=== PATIENT | female | born 1985 | race Two or more races ===

== ENCOUNTER 2021-09-15 11:52 | Outpatient (CLI) | payer OTHER | END 2021-09-15 12:38 | disposition home or self-care (01) | LOC: SONOGRAMA 11:52 | PROVIDERS: ATTEND Pathology Anatomic Pathology & Clinical Pathology | DX: E04.1 Nontoxic single thyroid nodule (principal) ==

== ENCOUNTER 2021-12-02 22:34 | Emergency (ER) | payer OTHER ==
[~2021-12-02] VITALS: Ht 157.5 cm; Wt 82.1 kg
[2021-12-02] MEDS ORDERED: PRENA1 CHEW TA1.4 MG (23:15)
[2021-12-02] MEDS ORDERED: PEPCID AC10 MG (23:15)
== END 2021-12-03 07:32 | disposition home or self-care (01) ==
LOC: ER 22:34
DX: O26.852 Spotting complicating pregnancy, second trimester (principal); O26.892 Other specified pregnancy related conditions, second trimester; Z3A.15 15 weeks gestation of pregnancy

== ENCOUNTER 2022-05-05 11:06 | Outpatient (CLI) | payer OTHER ==
[~2022-05-05 11:06] MED LIST: PEPCID AC10 MG; PRENA1 CHEW TA1.4 MG
== END 2022-05-05 11:52 | disposition home or self-care (01) ==
LOC: NST 11:06
PROVIDERS: ATTEND Obstetrics & Gynecology Maternal & Fetal Medicine
DX: Z34.83 Encounter for supervision of other normal pregnancy, third trimester (principal)

== ENCOUNTER 2022-05-18 13:45 | Inpatient (IN) | payer OTHER ==
[~2022-05-18] VITALS: Ht 157.5 cm; Wt 90.7 kg
== END 2022-05-24 12:58 | disposition home or self-care, planned readmission (81) | DRG 807 ==
LOC: SURG-SUITE 05-22 13:06 → LDR 05-22 13:06 → SURG-SUITE 05-22 17:27 → LDR 05-29 13:45
PROVIDERS: ADMIT Obstetrics & Gynecology Maternal & Fetal Medicine; ATTEND Obstetrics & Gynecology Maternal & Fetal Medicine
PROC: 10E0XZZ Delivery of Products of Conception, External Approach (ICD-10-PCS; principal; 2022-05-22)
PROC: 4A1HXCZ Monitoring of Products of Conception, Cardiac Rate, External Approach (ICD-10-PCS; 2022-05-22)
DX: O80 Encounter for full-term uncomplicated delivery (principal); Z37.0 Single live birth; Z3A.39 39 weeks gestation of pregnancy; Z20.822 Contact with and (suspected) exposure to COVID-19

== ENCOUNTER 2023-10-12 13:30 | Inpatient (IN) | payer OTHER ==
[~2023-10-12] VITALS: Ht 157.5 cm; Wt 91.6 kg
[2023-10-24 07:32] LABS: URINE APPEARANCE Clear; URINE BILIRRUBIN Negative (NEGATIVE); URINE BLOOD Small; URINE COLOR Yellow; URINE GLUCOSE Negative (NEGATIVE); URINE LEUKOCYTE Negative; URINE NITRATE Negative; URINE PROTEIN 30 (NEGATIVE); URINE UROBILINOGEN 0.2 E.U./dl
[2023-10-24 07:35] LABS: URINE EPITHELIAL CELLS 19.9 uL (0.0-38.8); URINE RBC 26.2 uL (0.0-20.8); URINE WBC 34.3 uL (0.0-23.2)
[2023-10-24 08:00] LABS: INR < 0.93; PARTIAL THROMBOPLASTIN TIME 26.3 SECONDS (22.0-34.0); PROTHROMBIN TIME 9.7 SECONDS (9.0-11.5)
[2023-10-24 08:05] LABS: HEMATOCRIT 31.6 % (36.0-45.00); HEMOGLOBIN 10.8 g/dL (12.0-15.00); MEAN CELL VOLUME 90.1 fL (80.00-100.00); MEAN CORPUSCULAR HEMOGLOBIN 30.7 pg (27.00-32.0); MEAN CORPUSCULAR HGB CONC 34.1 g/dl (32.0-36.0); PLATELET COUNT 181 K/uL (150-450); RED BLOOD COUNT 3.51 M/uL (4.00-6.00); RED CELL DISTRIBUTION WIDTH 14.6 % (11.5-14.5)
[2023-10-24 08:12] LABS: ALBUMIN 2.6 gm/dL (3.4-5.0); BILIRUBIN TOTAL 0.23 mg/dL (0.3-1.2); CALCIUM 9.3 mg/dL (8.5-10.1); CREATININE SERUM 0.63 mg/dL (0.55-1.02); GFR 104.66; GLOBULINA 3.4 G/DL (2.4-3.5); POTASSIUM 4.06 mEq/L (3.5-5.1)
[2023-10-25 06:19] LABS: HEMATOCRIT 28.4 % (36.0-45.00); HEMOGLOBIN 9.9 g/dL (12.0-15.00); MEAN CELL VOLUME 89.4 fL (80.00-100.00); MEAN CORPUSCULAR HEMOGLOBIN 31.2 pg (27.00-32.0); PLATELET COUNT 150 K/uL (150-450); RED BLOOD COUNT 3.17 M/uL (4.00-6.00); RED CELL DISTRIBUTION WIDTH 14.2 % (11.5-14.5)
== END 2023-10-26 13:49 | disposition home or self-care (01) | DRG 807 ==
LOC: LDR 10-24 06:39 → OB/GYN 10-24 20:24 → LDR 10-28 13:30
PROVIDERS: Obstetrics & Gynecology Gynecology; ADMIT Obstetrics & Gynecology; ATTEND Obstetrics & Gynecology
PROC: 10E0XZZ Delivery of Products of Conception, External Approach (ICD-10-PCS; principal; 2023-10-24)
PROC: 0UQG7ZZ Repair Vagina, Via Natural or Artificial Opening (ICD-10-PCS; 2023-10-24)
PROC: 4A1HXCZ Monitoring of Products of Conception, Cardiac Rate, External Approach (ICD-10-PCS; 2023-10-24)
DX: O71.4 Obstetric high vaginal laceration alone (principal); Z37.0 Single live birth; Z3A.39 39 weeks gestation of pregnancy; Z20.822 Contact with and (suspected) exposure to COVID-19

== ENCOUNTER 2023-10-17 12:11 | Outpatient (CLI) | payer OTHER | END 2023-10-17 12:37 | disposition home or self-care (01) | LOC: NST 12:11 | PROVIDERS: ATTEND Obstetrics & Gynecology | DX: Z34.83 Encounter for supervision of other normal pregnancy, third trimester (principal) ==

== ENCOUNTER 2023-10-22 17:18 | Outpatient (CLI) | payer OTHER | END 2023-10-23 07:16 | disposition home or self-care (01) | LOC: NST 17:18 | PROVIDERS: ATTEND Obstetrics & Gynecology Gynecology | DX: Z34.83 Encounter for supervision of other normal pregnancy, third trimester (principal) ==

== ENCOUNTER 2025-03-19 10:17 | Outpatient (CLI) | payer OTHER | END 2025-03-19 10:20 | disposition home or self-care (01) | LOC: SONOGRAMA 10:17 | PROVIDERS: ATTEND Pathology Anatomic Pathology & Clinical Pathology | DX: D34 Benign neoplasm of thyroid gland (principal); E07.89 Other specified disorders of thyroid; E04.1 Nontoxic single thyroid nodule ==